=== PATIENT | male | born 1965 | race Caucasian/White ===

== ENCOUNTER 2020-08-07 11:51 | Observation (INO) ==
[2020-08-07 14:25] LABS: Basophils # 0.1 K/mcL (0.0-0.2); Basophils % 0.4 %; Eosinophils % 0.1 %; Hematocrit 45.5 % (37.5-50.1); Hemoglobin 15.4 g/dL (12.9-16.9); Immature Granulocytes % 0.3 % (0-4); Lymphocytes # 1.3 K/mcL (0.6-4.6); Lymphocytes % 9.6 %; Mean Corpuscular HGB Conc 33.8 g/dL (31.6-35.5); Mean Corpuscular Hemoglobin 32.4 pg (28.0-33.3); Mean Corpuscular Volume 95.6 fL (83.0-100.0); Mean Platelet Volume 8.6 fL (9.4-12.4); Monocytes # 0.7 K/mcL (0.0-1.3); Monocytes % 5.1 %; Neutrophils # 11.5 K/mcL (1.6-8.9); Platelet Count 451 K/mcL (140-400); Red Blood Count 4.76 M/mcL (4.19-5.50); Red Cell Distribution Width 14.6 % (11.5-14.5); Segmented Neutrophils % 84.5 %; White Blood Count 13.6 K/mcL (4.3-11.1)
[2020-08-07 14:41] LABS: BUN/Creatinine Ratio 10 (6-26); Blood Urea Nitrogen 9 mg/dL (6-20); Calcium 9.5 mg/dL (8.6-10.3); Carbon Dioxide 23 mEq/L (23-29); Chloride 103 mEq/L (98-107); Glucose 103 mg/dL (70-105); Osmolality,Calculated 279 (280-300); Potassium 4.3 mEq/L (3.5-5.1); Sodium 135 mEq/L (136-145); eGFR For African Americans > 60 (> 60); eGFR For Non-African Americans > 60 (> 60)
[2020-08-07] MEDS ORDERED: Piperacillin/Tazobactam 3.375 GM in Water for inj. (sterile) 20 ML IVP ONE (16:00)
[2020-08-07] MEDS ORDERED: Tdap (Boostrix) Vaccine 0.5 ML SYRINGE IM ONE (16:09)
[2020-08-07 16:15] LABS: C-Reactive Protein 22 mg/L (Less than 10)
[2020-08-07] MEDS ORDERED: Acetaminophen 325 MG TABLET PO PRN (17:15)
[2020-08-07] MEDS ORDERED: Naloxone 0.4 MG/ML INJ IVP PRN (17:15)
[2020-08-07] MEDS ORDERED: 0.9 % Sodium Chloride 1,000 ML IVC SCH (18:00)
[2020-08-07] MEDS ORDERED: Isovue-370 500 ML BOTTLE IVP ONE (18:13)
[2020-08-07] MEDS ORDERED: 0.9 % Sodium Chloride 1,000 ML IVC ONE (18:19)
[2020-08-07] MEDS: 0.9 % Sodium Chloride 1,000 ML IVC SCH (20:48)
[2020-08-07] MEDS: *HR* Metoprolol 5 MG/5 ML VIAL IVP PRN (20:49)
[2020-08-07] MEDS: Ketorolac 15 MG/ML VIAL IVP PRN (21:32)
[2020-08-07] MEDS: Piperacillin/Tazobactam 3.375 GM in 0.9 % Sodium Chloride Mini Bag 100 ML IVPB SCH (23:36)
[2020-08-08] MEDS: Vancomycin 1,500 MG/265 ML IV.SOLN IVPB SCH ×2 (03:14→16:01)
[2020-08-08 06:28] LABS: Basophils # 0.1 K/mcL (0.0-0.2); Basophils % 0.5 %; Eosinophils # 0.1 K/mcL (0.0-0.6); Eosinophils % 0.7 %; Hematocrit 40.9 % (37.5-50.1); Immature Granulocytes % 0.3 % (0-4); Lymphocytes # 1.2 K/mcL (0.6-4.6); Lymphocytes % 13.4 %; Mean Corpuscular HGB Conc 33.7 g/dL (31.6-35.5); Mean Corpuscular Hemoglobin 32.1 pg (28.0-33.3); Mean Corpuscular Volume 95.1 fL (83.0-100.0); Mean Platelet Volume 8.6 fL (9.4-12.4); Monocytes # 0.7 K/mcL (0.0-1.3); Monocytes % 7.3 %; Neutrophils # 7.1 K/mcL (1.6-8.9); Platelet Count 382 K/mcL (140-400); Red Cell Distribution Width 14.8 % (11.5-14.5); Segmented Neutrophils % 77.8 %; White Blood Count 9.1 K/mcL (4.3-11.1)
[2020-08-08 06:29] LABS: Hemoglobin 13.8 g/dL (12.9-16.9)
[2020-08-08 06:48] LABS: BUN/Creatinine Ratio 10 (6-26); Blood Urea Nitrogen 9 mg/dL (6-20); Calcium 8.7 mg/dL (8.6-10.3); Carbon Dioxide 21 mEq/L (23-29); Chloride 104 mEq/L (98-107); Glucose 99 mg/dL (70-105); Osmolality,Calculated 277 (280-300); Sodium 134 mEq/L (136-145); eGFR For African Americans > 60 (> 60); eGFR For Non-African Americans > 60 (> 60)
[2020-08-08] MEDS: Piperacillin/Tazobactam 3.375 GM in 0.9 % Sodium Chloride Mini Bag 100 ML IVPB SCH ×3 (07:34→23:52)
[2020-08-08] MEDS: 0.9 % Sodium Chloride 1,000 ML IVC SCH ×3 (09:38→20:38)
[2020-08-08] MEDS: lisinopriL 5 MG TABLET PO SCH (09:39)
[2020-08-08] MEDS: Ketorolac 15 MG/ML VIAL IVP PRN (15:24)
[2020-08-08] MEDS: *HR* Heparin 5,000 UNIT/ML VIAL SQ SCH (17:28)
[2020-08-08] MEDS: *HR* Metoprolol 5 MG/5 ML VIAL IVP PRN (17:28)
[2020-08-09 02:18] LABS: Basophils # 0.1 K/mcL (0.0-0.2); Basophils % 0.7 %; Eosinophils # 0.1 K/mcL (0.0-0.6); Eosinophils % 1.7 %; Hematocrit 40.9 % (37.5-50.1); Hemoglobin 13.8 g/dL (12.9-16.9); Immature Granulocytes % 0.1 % (0-4); Lymphocytes # 1.9 K/mcL (0.6-4.6); Lymphocytes % 26.9 %; Mean Corpuscular HGB Conc 33.7 g/dL (31.6-35.5); Mean Corpuscular Hemoglobin 32.2 pg (28.0-33.3); Mean Corpuscular Volume 95.3 fL (83.0-100.0); Mean Platelet Volume 8.6 fL (9.4-12.4); Monocytes # 0.6 K/mcL (0.0-1.3); Monocytes % 8.6 %; Neutrophils # 4.4 K/mcL (1.6-8.9); Platelet Count 372 K/mcL (140-400); Red Blood Count 4.29 M/mcL (4.19-5.50); Red Cell Distribution Width 14.9 % (11.5-14.5); White Blood Count 7.1 K/mcL (4.3-11.1)
[2020-08-09 02:35] LABS: BUN/Creatinine Ratio 11 (6-26); Blood Urea Nitrogen 10 mg/dL (6-20); Calcium 8.8 mg/dL (8.6-10.3); Carbon Dioxide 21 mEq/L (23-29); Chloride 106 mEq/L (98-107); Glucose 105 mg/dL (70-105); Osmolality,Calculated 281 (280-300); Potassium 3.7 mEq/L (3.5-5.1); Sodium 136 mEq/L (136-145); Vancomycin,Trough 13 mcg/mL (5-10); eGFR For African Americans > 60 (> 60); eGFR For Non-African Americans > 60 (> 60)
[2020-08-09] MEDS: Vancomycin 1,500 MG/265 ML IV.SOLN IVPB SCH (03:18)
[2020-08-09] MEDS: 0.9 % Sodium Chloride 1,000 ML IVC SCH (03:20)
[2020-08-09] MEDS: *HR* Heparin 5,000 UNIT/ML VIAL SQ SCH (05:49)
[2020-08-09 07:31] VITALS: BP 181/112
[2020-08-09] MEDS: lisinopriL 5 MG TABLET PO SCH (07:53)
[2020-08-09] MEDS ORDERED: Isovue-370 500 ML BOTTLE IVP ONE (07:53)
[2020-08-09] MEDS: Piperacillin/Tazobactam 3.375 GM in 0.9 % Sodium Chloride Mini Bag 100 ML IVPB SCH (07:54)
== END 2020-08-09 10:11 | disposition left against medical advice (07) ==
LOC: EMEROOARM 11:51 → 3ANU 11:51
PROVIDERS: ADMIT Internal Medicine; ATTEND Internal Medicine